=== PATIENT | male | born 1990 | race American Indian/Alaskan Native ===

== ENCOUNTER 2017-03-15 15:59 | Emergency (ER) | payer SELFPAY ==
--- NOTE | 2017-03-15 18:00 | XRay Report ---
FINAL REPORT PROCEDURE: XR KNEE 3V LT TECHNIQUE: Three views of the left knee are obtained HISTORY: LT KNEE Pain Edema COMPARISON: No prior studies are available for comparison. FINDINGS: Joint effusion is seen with subcutaneous edema. No fracture or dislocation is seen. No bone destruction is seen. IMPRESSION: Joint effusion and subcutaneous edema are seen.
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
[2017-03-15] MEDS ORDERED: NORCO 5/325 PO ONE (19:52)
[2017-03-15] MEDS ORDERED: MOTRIN PO ONE (19:52)
[2017-03-15 20:03] VITALS: BP 119/66
== END 2017-03-15 20:12 | disposition home or self-care (01) ==
LOC: ED 15:59
DX: S83.92XA Sprain of unspecified site of left knee, initial encounter (principal); X58.XXXA Exposure to other specified factors, initial encounter; Y93.39 Activity, other involving climbing, rappelling and jumping off; Y99.8 Other external cause status; Y92.89 Other specified places as the place of occurrence of the external cause

== ENCOUNTER 2019-03-27 01:09 | Emergency (ER) | payer SELFPAY ==
[2019-03-27 04:00] LABS: Bacteria,Urine 1+ /HPF (Negative); Bilirubin,Urine NEG (Negative); Blood,Urine NEG (Negative); Color,Urine Yellow (Yellow); Mucus,Urine FEW /HPF; Protein,Urine <15 mg/dL mg/dL (Negative)
[2019-03-27] MEDS ORDERED: AZITHROMYCIN 250 MG TAB PO ONE (04:16)
[2019-03-27] MEDS ORDERED: LIDOCAINE-MPF (1%) 10 MG/1 ML VIAL 5 ML INFILTRATI ONE (04:16)
--- NOTE | 2019-03-27 04:18 | Emergency Department Report ---
ED Dysuria HPI - HPI Chief Complaint: Urogenital-Male Stated Complaint: BLOOD IN URINE Time Seen by Provider: 03/27/19 04:06 Severity: Mild Symptoms: Dysuria: Yes, Frequency: Yes, Suprapubic Pain: No, Flank Pain: No, Fever: No, Hematuria: No, Abdominal Pain: No, Previous UTI's: No Other History: he is a 29-year-old male who presents to ED complaining of noticing blood in his urine for the past 3 days. Patient denies fevers/testicular pain or testicular swelling. Patient also admits to urinary frequency. He denies penile discharge. ED Review of Systems ROS: Stated complaint: BLOOD IN URINE Other details as noted in HPI Comment: All other systems reviewed and negative ED Past Medical Hx - Past Medical History Previous Medical History?: No - Surgical History Past Surgical History?: No - Social History Smoking Status: Current Every Day Smoker Substance Use Type: Alcohol, Marijuana - Medications Home Medications: Home Medications Medication Instructions Recorded Confirmed Last Taken Type Naproxen 500 mg PO BID PRN #30 tablet 03/15/17 Unknown Rx Dysuria Exam - Exam General: Vital signs noted. No distress. Alert and acting appropriately. Exam: Yes Moist Mucous Membranes, No CVA Tenderness, No Abdominal Tenderness, No Rigidity or Guarding Labs: Lab Results 03/27/19 Range/Units 02:19 Urine Color Yellow (Yellow) Urine Turbidity Clear (Clear) Urine pH 6.0 (5.0-7.0) Ur Specific Roberta 1.026 (1.003-1.030) Urine Protein <15 mg/dl (Negative) mg/dL Urine Glucose (UA) Neg (Negative) mg/dL Urine Ketones Neg (Negative) mg/dL Urine Blood Neg (Negative) Urine Nitrite Neg (Negative) Urine Bilirubin Neg (Negative) Urine Urobilinogen 2.0 (<2.0) mg/dL Ur Leukocyte Esterase Tr (Negative) Urine WBC (Auto) 7.0 H (0.0-6.0) /HPF Urine RBC (Auto) 2.0 (0.0-6.0) /HPF U Epithel Cells (Auto) 1.0 (0-13.0) /HPF Urine Bacteria (Auto) 1+ (Negative) /HPF Urine Mucus Few /HPF ED Course Vital Signs 03/27/19 01:13 Temperature 98.8 F Pulse Rate 90 Respiratory 18 Rate Blood Pressure 135/69 O2 Sat by Pulse 99 Oximetry ED Medical Decision Making - Lab Data Laboratory Last Values Urine Color Yellow (Yellow) 03/27/19 02:19 Urine Turbidity Clear (Clear) 03/27/19 02:19 Urine pH 6.0 (5.0-7.0) 03/27/19 02:19 Ur Specific Roberta 1.026 (1.003-1.030) 03/27/19 02:19 Urine Protein <15 mg/dl mg/dL (Negative) 03/27/19 02:19 Urine Glucose (UA) Neg mg/dL (Negative) 03/27/19 02:19 Urine Ketones Neg mg/dL (Negative) 03/27/19 02:19 Urine Blood Neg (Negative) 03/27/19 02:19 Urine Nitrite Neg (Negative) 03/27/19 02:19 Urine Bilirubin Neg (Negative) 03/27/19 02:19 Urine Urobilinogen 2.0 mg/dL (<2.0) 03/27/19 02:19 Ur Leukocyte Esterase Tr (Negative) 03/27/19 02:19 Urine WBC (Auto) 7.0 /HPF (0.0-6.0) H 03/27/19 02:19 Urine RBC (Auto) 2.0 /HPF (0.0-6.0) 03/27/19 02:19 U Epithel Cells (Auto) 1.0 /HPF (0-13.0) 03/27/19 02:19 Urine Bacteria (Auto) 1+ /HPF (Negative) 03/27/19 02:19 Urine Mucus Few /HPF 03/27/19 02:19 - Medical Decision Making 29-year-old male presents with urethritis. Urinalysis shows moderate leuks and 1+ bacteria. Patient treated empirically with azithromycin and Rocephin. Discussed sufficient to follow-up with primary care physician or [facility] for further testing. Vital signs are normal patient is in no acute distress. Critical care attestation.: If time is entered above; I have spent that time in minutes in the direct care of this critically ill patient, excluding procedure time. ED Disposition Clinical Impression: Urethritis Disposition: DC-01 TO HOME OR SELFCARE Is pt being admited?: No Does the pt Need Aspirin: No Condition: Stable Instructions: Nonspecific Urethritis in Men (ED) Additional Instructions: Make sure to follow up with the primary care physician as discussed. Take all your medications as you've been prescribed. If you have any worsening symptoms or develop new symptoms please return to ED immediately. Referrals: PRIMARY CARE, [Primary Care Provider] - 3-5 Days [facility] [Outside] - 3-5 Days [facility] [Outside] - 3-5 Days [facility] [Outside] - 3-5 Days Forms: STI Treatment and Prevention Time of Disposition: 04:17
[2019-03-27 04:42] VITALS: BP 123/78
== END 2019-03-27 04:43 | disposition home or self-care (01) ==
LOC: ED 01:09
DX: N34.2 Other urethritis (principal); F17.200 Nicotine dependence, unspecified, uncomplicated; F10.10 Alcohol abuse, uncomplicated; F12.10 Cannabis abuse, uncomplicated; Z79.899 Other long term (current) drug therapy
CPT/HCPCS: 81001; 96372; 99283; J0696